=== PATIENT | female | born 1945 | race Caucasian/White ===

== ENCOUNTER 2017-01-24 12:54 | Emergency (ER) | payer MEDICARE ==
[~2017-01-24] VITALS: Ht 157.5 cm; Wt 89.3 kg
[~2017-01-24 12:54] MED LIST: HYDR50TA4 PO; LISI20TA PO; SIMV20TA4 PO
--- NOTE | 2017-01-24 12:59 | ED.REPORT ---
HPI-Chest Pain 40 and Over Date of Service January 24, 2017 ED Provider: Amanuel Lam DO The pt is a 71 y/o female w/ a hx of hypertension and stroke presenting to the ED complaining of intermittent chest pain onset yesterday. Each episode lasts approximately one second with a frequency of once every few seconds during each episode, and is worse now than it was yesterday. The last episode was 20 minutes ago. The pain radiates across both sides of her chest but not to her jaw or back and is described as "sharp." She also admits to increased urinary frequency and feels tired when she stands for too long but denies SOB, cough, abdominal pain, dysuria or lower extremity edema. The pt is on the 4th day of cold-like symptoms and is experiencing rhinorrhea. The pt is unable to remember if she took her BP medication this morning. Nursing Notes Stated Complaint: CHEST PAIN Nursing Notes Reviewed: Yes Allergies: Coded Allergies: No Known Allergies (Unverified Allergy, Unknown, 02/15/14) Scheduled Hydrochlorothiazide-Expunged, Do Not Renew! (Hydrochlorothiazide-Expunged, Do Not Renew!) 50 Mg Tablet 25 MG PO DAILY Lisinopril-Expunged Drug, Do Not Renew! (Lisinopril-Expunged Drug, Do Not Renew! 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 Male: Reports Urinary frequency, Denies Dysuria Allergy / Immune: Reports: Rhinorrhea Physical Exam Initial Vital Signs Vital Signs (First) Date Time Temp Pulse Resp B/P Pulse Ox O2 Delivery O2 Flow Rate FiO2 01/24/17 13:03 36.4 113 16 182/83 97 Room Air Initial VS: Reviewed General/Constitutional: Awake, Alert Appearance / Presentation: Positive: Obese Respiratory / Chest: Atraumatic, Breath sounds NL, Breath sounds = bilat, No respiratory distress, No rales, No rhonchi, No wheezing Cardiovascular: Heart rate NL, Regular rhythm, Heart sounds NL Trace LE edema Abdomen: Atraumatic, Soft, Non-tender Neck: Atraumatic, Supple, Full range of motion Back: Atraumatic, Full range of motion Lower Extremity / Pelvis / MS: Atraumatic, Full range of motion Skin: Warm, Dry facial telangiectasias Neurologic: Oriented X3, Speech NL Psychiatric: Affect NL, Mood NL Head / Eyes: Normocephalic, No photophobia Interpretation & Diagnostics Lab Results Interpretation Result Diagram: 01/24/17 1320 01/24/17 1320 Test 01/24/17 13:20 White Blood Count 6.8th/mm3 (3.8-10.1) Red Blood Count 4.99mil/mm3 (3.90-5.20) Hemoglobin 14.6g/dL (12.0-15.6) Hematocrit 43.8% (35.0-46.0) Mean Corpuscular Volume 87.8fL (81-100) Mean Corpuscular Hemoglobin 29.3pg (27.0-35.0) Mean Corpuscular Hemoglobin Concent 33.3% (32.0-37.0) Red Cell Distribution Width 13.7% (12.3-15.4) Platelet Count 257bil/L (150-400) Neutrophils (%) (Auto) 66.2% (40-74) Lymphocytes (%) (Auto) 22.9% (14-46) Monocytes (%) (Auto) 8.8% (4-12) Eosinophils (%) (Auto) 1.5% (0-5) Basophils (%) (Auto) 0.3% (0-3) D-Dimer < 0.50mg/L FEU (<0.50) Sodium Level 131mEq/L (134-144) Potassium Level 4.9mEq/L (3.5-5.2) Chloride Level 89mEq/L (97-108) Carbon Dioxide Level 25mmol/L (18-29) Blood Urea Nitrogen 24mg/dL (8-27) Creatinine 0.86mg/dL (0.57-1.00) Estimat Glomerular Filtration Rate 93mL/min (>59) Glucose Level 123mg/dL (60-99) Calcium Level 11.2mg/dL (8.5-10.1) Magnesium Level 1.8mg/dL (1.6-2.6) Total Bilirubin 0.5mg/dL (0.0-1.2) Aspartate Amino Transf (AST/SGOT) 25U/L (0-50) Alanine Aminotransferase (ALT/SGPT) 27U/L (0-32) Alkaline Phosphatase 113U/L (25-165) Troponin T < 0.010ug/L (0.0-0.011) Pro-B-Type Natriuretic Peptide 147.5pg/mL (0-301) Total Protein 8.2g/dL (6.4-8.4) Albumin 4.6g/dL (3.4-5.0) Hold Zuniga Top Tube Received (Received) X-Ray Chest Interpretation Chest Xray Interpretation: IMPRESSION: No acute disease Dictated by: Niraj Van M.D. on 01/24/2017 at 13:40 Approved by: Niraj Van M.D. on 01/24/2017 at 13:41 View: Portable, 1 view Interpretation / Wet Read by: Interpret - Radiologist Re-Eval/Medical Decision Med Decision/Clinical Course Symptoms are rather vague and nonspecific but are transient lasting only a second. I do not think that this represents acute coronary syndrome or other life threatening pathology. Patient will be discharged. Incidentally she has mild hypercalcemia which may be related to hydrochlorothiazide. Return and follow-up precautions are given. Source of Hx: Old records Time of Eval: 14:09 Re-Evaluation/Progress Note: Discussed radiology and lab results, as well as plan for road test. Time of Eval: 14:20 Re-Evaluation/Progress Note: Pt rechecked, who has passed her road test. Informed pt of plan for discharge. Pt understands and agrees with plan for discharge. F/U instructions and RTER warnings given. All questions addressed. Counseled Regarding: Diagnosis, Lab results, Need for follow-up, When/why to return to ED Discharge & Departure Primary Impression: Chest pain Chest pain type: unspecified Qualified Code: R07.9 - Chest pain, unspecified Additional Impression: Hypercalcemia Disposition: Home Discharge Condition All VS Reviewed: Yes Condition: Stable Additional Instructions: Thank you for entrusting us with your care today. You were seen for chest pain and your labs showed hypercalcemia. Stop taking your hydrochlorothiazide. You need an outpatient Holter monitor and a stress test. Use aspirin daily and stay hydrated. Return to the ED for any recurrent persistent chest pain or any other concerns. Call your PCP Thursday morning to arrange for other testing and discuss blood pressure management without hydrochlorothiazide.. Referrals: Madison Deng MD (PCP) Scribe Attestation Portions of this note were transcribed by Lawrence Handley and David Borja. I, Dr. Zuhair Cavazos personally performed the history, physical exam and medical decision- making; I reviewed and confirmed the accuracy of the information in the transcribed note. Signed by: Lawrence Handley and David Borja, [place], 01/24/17 and [id number]. copies to: Madison Deng MD, Timothy S DO January 24, 2017 12:59 Lawrence Handley January 24, 2017 13:15 DAVID BORJA January 24, 2017 13:44
[2017-01-24 13:03] VITALS: BP 182/83; PULSE 113; RESP 16; O2SAT 97
--- NOTE | 2017-01-24 13:42 | DRSVH ---
PROCEDURE: X-RAY CHEST ONE VIEW, PORTABLE ([id number]) INDICATIONS: chest pain TECHNIQUE: One view of the chest was acquired. COMPARISON: [facility], , CHEST 2VW, 07/20/2012, 14:52. FINDINGS: Surgical changes and devices: None. Lungs and pleura: No pleural effusions or pneumothorax. Lungs are clear. Mediastinum: Mediastinal contours appear normal. Heart size is normal. Bones and chest wall: No suspicious bony lesions. Overlying soft tissues appear unremarkable. IMPRESSION: No acute disease Dictated by: Niraj Van M.D. on 01/24/2017 at 13:40 Approved by: Niraj Van M.D. on 01/24/2017 at 13:41
[2017-01-24 13:44] LABS: BASOPHILS % (AUTO) 0.3 % (0-3); EOSINOPHILS % (AUTO) 1.5 % (0-5); MONOCYTES % (AUTO) 8.8 % (4-12); Mean Corpuscular Hemoglobin 29.3 pg (27.0-35.0); Mean Corpuscular Volume 87.8 fL (81-100); NEUTROPHILS % (AUTO) 66.2 % (40-74); Platelet Count 257 bil/L (150-400)
[2017-01-24 14:11] LABS: Magnesium 1.8 mg/dL (1.6-2.6); TROPONIN T < 0.010 ug/L (0.0-0.011)
[2017-01-24 14:30] VITALS: BP 147/98; PULSE 85; RESP 21; O2SAT 97
== END 2017-01-24 14:28 | disposition home or self-care (01) ==
LOC: SED 12:54
DX: R07.9 Chest pain, unspecified (principal); E83.52 Hypercalcemia; I10 Essential (primary) hypertension; Z86.73 Personal history of transient ischemic attack (TIA), and cerebral infarction without residual deficits; Z90.89 Acquired absence of other organs; Z90.710 Acquired absence of both cervix and uterus